=== PATIENT | male | born 1980 | race African-American/Black ===

== ENCOUNTER 2017-08-02 11:44 | Inpatient (IN) | payer MEDICAID ==
[~2017-08-02] VITALS: Ht 175.3 cm; Wt 97.0 kg
[2017-08-02] MEDS ORDERED: PALI78DI IM (11:50)
[2017-08-02] MEDS ORDERED: RISP1 PO (11:50)
[2017-08-02 12:40] LABS: BASOPHILS % (AUTO) 0.4 % (0.0-2.0); EOSINOPHILS % (AUTO) 2.1 % (1.0-6.0); HEMATOCRIT 43.8 % (41-53); HEMOGLOBIN 14.8 g/dL (13.5-17.5); LYMPHOCYTES # (AUTO) 1.2 K/uL (1.0-4.8); LYMPHOCYTES % (AUTO) 13.8 % (22.0-44.0); MEAN CORPUSCULAR HEMOGLOBIN 30.2 pg (26.0-34.0); MEAN CORPUSCULAR HGB CONC 33.8 G/dL (31.0-37.0); MEAN CORPUSCULAR VOLUME 89 fL (80-100); MONOCYTES # (AUTO) 0.6 K/uL (0.1-1.0); MONOCYTES % (AUTO) 6.8 % (2.0-9.0); NEUTROPHILS # (AUTO) 6.4 K/uL (1.8-7.7); NEUTROPHILS % (AUTO) 76.9 % (40.0-70.0); PLATELET COUNT (AUTO) 227 K/uL (150-450); RED BLOOD CELL COUNT(AUTO) 4.89 MIL/uL (4.50-5.90); RED CELL DISTRIBUTION WIDTH 13.9 % (11.5-14.5); WHITE BLOOD COUNT (AUTO) 8.4 K/uL (4.5-11.0)
[2017-08-02 12:49] LABS: ANION GAP 6 mmol/L (8-16); CALCIUM, TOTAL 8.9 mg/dL (8.8-10.5); CARBON DIOXIDE 28 mmol/L (22-29); CHLORIDE 105 mmol/L (98-107); CREATININE 0.97 mg/dL (0.60-1.30); GLOMERULAR FILTR. RATE CALC > 60 mL/min (>60); SODIUM SERUM 139 mmol/L (136-145); UREA NITROGEN, BLOOD 12 mg/dL (7-18)
[2017-08-02 13:04] LABS: ALANINE AMINOTRANSFERASE 24 U/L (12-78); ALBUMIN 3.7 g/dL (3.4-5.0); ASPARTATE AMINOTRANSFERASE 16 U/L (15-37); BILIRUBIN,TOTAL 0.3 mg/dL (0.1-1.0); THYROID STIMULATING HORMONE 0.66 uIU/mL (0.36-3.74); TOTAL PROTEIN, SERUM 7.6 g/dL (6.4-8.2)
[2017-08-02] MEDS ORDERED: LORazepam 2 MG/ML VIAL IM ONE (15:15)
[2017-08-02] MEDS ORDERED: HALOPERIDOL 5 MG TABLET PO PRN (16:00)
[2017-08-02 18:54] VITALS: BP 137/93
[2017-08-03 02:20] VITALS: BP 118/92
[2017-08-03] MEDS ORDERED: BACITRACIN 28.4 GM OINTMENT TP PRN (08:15)
[2017-08-03] MEDS ORDERED: BENZOCAINE/MENTHOL LOZENGE MM PRN (08:15)
[2017-08-03] MEDS ORDERED: CloNIDine HCL 0.1 MG TABLET PO PRN (08:15)
[2017-08-03] MEDS ORDERED: MAG HYDROX/AL HYDROX/SIMETH ES 30 ML SUSPENSION UDCUP PO PRN (08:15)
[2017-08-03] MEDS ORDERED: IBUPROFEN 600 MG TABLET PO PRN (08:15)
[2017-08-03] MEDS ORDERED: MAGNESIUM HYDROXIDE SUSPENSION 30 ML UDCUP PO PRN (08:15)
[2017-08-03] MEDS ORDERED: LOPERAMIDE HCL 2 MG CAPSULE PO PRN (08:15)
[2017-08-03] MEDS ORDERED: ACETAMINOPHEN 325 MG TABLET PO PRN (08:15)
[2017-08-03] MEDS ORDERED: PETROLATUM,WHITE 71 GM JELLY TP PRN (08:15)
[2017-08-03] MEDS ORDERED: ONDANSETRON HCL 4 MG TABLET PO PRN (08:15)
[2017-08-03] MEDS ORDERED: ALBUTEROL SULFATE HFA 90 MCG/PUFF 8 GM INHALER IH PRN (08:15)
[2017-08-03 08:29] VITALS: BP 136/80
[2017-08-03 08:37] LABS: CHOL/HDL RATIO 3.3 (4.2-7.3)
[2017-08-03] MEDS ORDERED: PALIPERIDONE 3 MG ER TABLET PO SCH (09:00)
[2017-08-03 16:00] VITALS: BP 138/88
[2017-08-03] MEDS: LORazepam 2 MG TABLET PO PRN (16:52)
[2017-08-03] MEDS: PALIPERIDONE 3 MG ER TABLET PO SCH (20:35)
[2017-08-04 06:10] VITALS: BP 129/88
[2017-08-04 08:08] VITALS: BP 126/78
[2017-08-04] MEDS: PALIPERIDONE 3 MG ER TABLET PO SCH ×2 (09:49→20:08)
[2017-08-04 16:11] VITALS: BP 124/74
[2017-08-04] MEDS: LORazepam 2 MG TABLET PO PRN (17:15)
[2017-08-05 04:35] VITALS: BP 117/83
[2017-08-05] MEDS: PALIPERIDONE 3 MG ER TABLET PO SCH ×2 (07:57→21:00)
[2017-08-05 08:09] VITALS: BP 125/100
[2017-08-05 16:15] VITALS: BP 138/89
[2017-08-05] MEDS: LORazepam 2 MG TABLET PO PRN (17:19)
[2017-08-05] MEDS: ZOLPIDEM TARTRATE 10 MG TABLET PO PRN (21:00)
[2017-08-06 03:55] VITALS: BP 123/85
[2017-08-06] MEDS: PALIPERIDONE 3 MG ER TABLET PO SCH ×2 (08:54→20:18)
[2017-08-06 09:31] VITALS: BP 144/80
[2017-08-06 16:00] VITALS: BP 139/89
[2017-08-06] MEDS ORDERED: PALIPERIDONE PALMITATE 234 MG/1.5 ML SYRINGE IM SCH (16:00)
[2017-08-06] MEDS: LORazepam 2 MG TABLET PO PRN (16:19)
[2017-08-07 06:39] VITALS: BP 110/65
[2017-08-07] MEDS: PALIPERIDONE 3 MG ER TABLET PO SCH ×2 (08:50→20:48)
[2017-08-07] MEDS: LORazepam 2 MG TABLET PO PRN ×2 (08:50→20:48)
[2017-08-07 10:23] VITALS: BP 136/85
[2017-08-07] MEDS ORDERED: PALI6 PO (15:35)
[2017-08-07 16:00] VITALS: BP 132/87
[2017-08-07] MEDS: ZOLPIDEM TARTRATE 10 MG TABLET PO PRN (20:48)
[2017-08-08 05:34] VITALS: BP 129/98
[2017-08-08] MEDS: PALIPERIDONE 3 MG ER TABLET PO SCH ×2 (08:19→20:35)
[2017-08-08 08:22] VITALS: BP 138/84
[2017-08-08] MEDS: LORazepam 2 MG TABLET PO PRN ×2 (08:23→17:07)
[2017-08-08 16:00] VITALS: BP 140/88
[2017-08-08] MEDS: ZOLPIDEM TARTRATE 10 MG TABLET PO PRN (20:35)
[2017-08-09 06:08] VITALS: BP 132/79
[2017-08-09 08:38] VITALS: BP 140/85
[2017-08-09] MEDS: LORazepam 2 MG TABLET PO PRN ×2 (08:54→16:09)
[2017-08-09] MEDS: PALIPERIDONE 3 MG ER TABLET PO SCH ×2 (08:54→20:36)
[2017-08-09 16:21] VITALS: BP 135/88
[2017-08-10 05:17] VITALS: BP 137/79
[2017-08-10 08:00] VITALS: BP 142/89
[2017-08-10] MEDS: PALIPERIDONE 3 MG ER TABLET PO SCH (09:08)
== END 2017-08-10 14:14 | disposition home or self-care (01) | DRG 750 ==
LOC: EMS 11:47 → B3A 17:24
PROVIDERS: ADMIT Psychiatry & Neurology Psychiatry; ATTEND Psychiatry & Neurology Psychiatry
DX: F20.0 Paranoid schizophrenia (principal); Z59.0 Homelessness; F31.9 Bipolar disorder, unspecified; F41.9 Anxiety disorder, unspecified; G47.00 Insomnia, unspecified; Z83.3 Family history of diabetes mellitus
CPT/HCPCS: 84443; 96372; 99285; G0480; J2060